=== PATIENT | male | born 1950 | race Caucasian/White ===

== ENCOUNTER 2017-01-23 16:35 | Outpatient (CLI) | payer MEDICARE, OTHER ==
[2017-01-23 16:59] LABS: #Basophils 0.1 thou/uL (0.0-0.2); #Eosinphils 0.2 thou/uL (0.0-0.7); #Lymphocytes 2.3 thou/uL (1.20-3.40); #Monocytes 0.9 thou/uL (0.11-0.59); #Neutrophils 4.4 thou/uL (1.40-6.50); %Eosinophils 2.5 % (0.0-10.0); %Monocytes 11.2 % (0.0-10.0); %Neutrophils 56.3 % (42.0-75.0); Hemoglobin 14.6 g/dL (14.0-18.0); Mean Corpuscular HGB CONC 33.5 g/dL (32.0-36.0); Mean Corpuscular Hemoglobin 29.6 pg (27.0-31.0); Mean Corpuscular Volume 88.2 fl (80.0-94.0); Mean Platelet Volume 8.5 fL (7.4-10.4); Platelet Count 235 thou/uL (130-400); RBC Distribution Width 13.8 % (11.5-14.5); Red Blood Cell (RBC) Count 4.94 mill/uL (4.70-6.10); White Blood Cell (WBC) Count 7.8 thou/uL (4.8-10.8)
[2017-01-23 17:19] LABS: ALT (SGPT) 15 U/L (8-55); AST (SGOT) 18 U/L (5-34); Albumin 4.3 g/dL (3.4-4.8); Alkaline Phosphatase 65 U/L (40-150); Anion Gap 12 mmol/L (10-20); BUN (Urea Nitrogen) 19 mg/dL (8.4-25.7); Bilirubin, Total 0.5 mg/dL (0.2-1.2); Calc. Creatinine Clearance 0 mL/min (70-130); Calcium 9.1 mg/dL (7.8-10.44); Carbon Dioxide 26 mmol/L (23-31); Cardiac Risk 5.1 (Less than 4.5); Chloride 107 mmol/L (98-107); Cholesterol 183 mg/dL (< 200 Desired); Estimated GFR-MDRD 88; Globulin 2.6 g/dL (2.4-3.5); Glucose 88 mg/dL (80-115); HDL Cholesterol 36 mg/dL (>60 Neg Risk); LDL Cholesterol, Calculated 123 mg/dL; Potassium 4.3 mmol/L (3.5-5.1); Protein, Total 6.9 g/dL (5.8-8.1); Sodium 141 mmol/L (136-145); Triglycerides 121 mg/dL (Less than 150)
[2017-01-23 18:32] LABS: PSA-Asymptomatic (SCREENING) 0.41 ng/mL (0-4.0); Thyroid Stimulating Hormone 1.6102 uIU/mL (0.35-4.94)
== END 2017-01-23 16:36 | disposition home or self-care (01) ==
LOC: HPCALD 16:35
PROVIDERS: ATTEND Family Medicine
DX: Z12.5 Encounter for screening for malignant neoplasm of prostate (principal); Z13.6 Encounter for screening for cardiovascular disorders; I10 Essential (primary) hypertension; R41.0 Disorientation, unspecified
CPT/HCPCS: 36415; 80053; 80061; 82607; 84443; 85025; 86592; G0103